=== PATIENT | male | born 1975 | race Caucasian/White ===

== ENCOUNTER → 2017-05-21 | Outpatient (CLI) | payer BC ==
--- NOTE | 2017-05-21 13:57 | DIAGNOSTIC IMAGING REPORT ---
TESTICULAR ULTRASOUND HISTORY: TESTICULAR LESION COMPARISON: None. FINDINGS: Right testis: 5.1 x 2.1 x 3.4 cm. There are no intratesticular masses. Normal color flow. Trace hydrocele. A 3.4 x 2.0 x 2.1 cm septated cyst within the epididymal head. This corresponds to the patient's palpable abnormality.. Left testis: 4.8 x 2.1 x 3.0 cm. There are no intratesticular masses. Normal color flow. Trace hydrocele. The epididymis is unremarkable. IMPRESSION: 1. No intratesticular masses. 2. A 3.4 x 2.0 x 2.1 cm septated cyst within the right epididymal head. This likely represents a spermatocele. Electronically signed by: Ed Shea M.D. 05/21/2017 1:56 PM Dictated Date/Time: 05/21/2017 1:54 PM
== END | disposition home or self-care (01) ==
LOC: C.ULTRBC 13:02
PROVIDERS: ATTEND Family Medicine
DX: N50.9 Disorder of male genital organs, unspecified (principal); N44.2 Benign cyst of testis